=== PATIENT | female | born 1995 | race African-American/Black ===

== ENCOUNTER 2020-04-12 10:18 | Emergency (ER) | payer SELFPAY ==
[2020-04-12 10:30] VITALS: BP 149/96; PULSE 91; RESP 16; TEMP 37.6; O2SAT 100
--- NOTE | 2020-04-12 10:38 | ED.GENADULT ---
HPI - General Adult General Chief complaint: Skin/Abscess/Foreign Body Stated complaint: Boil on right breast Time Seen by Provider: 04/12/20 10:39 Source: patient and RN notes reviewed Mode of arrival: ambulatory Limitations: no limitations History of Present Illness HPI narrative: 25-year-old -[place] female presents with complaints of a boil to RT breast with redness, tenderness, and swelling for the past 4 days. Tender to touch. Symptoms increased over the past 24 hours with drainage. History of skin abscess, last over a year ago per Amanda. No fever or chills. No abdominal pain, nausea, and vomiting. LMP 04/04/20-04/08/30. Remains active. The patient reports she have not been diagnosed with COVID-19. Amanda says she gets tested weekly (works at [employer], last one the week of 04/03/20 NEGATIVE). The patient reports she is waiting for the results of a COVID-19 lab test due to weekly testing. The patient reports she do not have fever, chills, weakness, fatigue, or myalgia. The patient reports she do not have a new or worsening cough or shortness of breath. Denies chest pain. The patient reports she do not have any rhinorrhea, congestion, sore throat, and diarrhea. Tolerating po intake well. Denies recent traveling. Denies concerns for COVID-19 or exposures been home with limited outdoor exposure except for essential household needs, work, and return home. At this time, patient is not suspected of having COVID-19. Some parts of this dictation were generated by voice recognition software and may contain typographical and/or grammatical inaccuracies. Related Data Home Medications Medication Instructions Recorded Confirmed metformin mg 04/12/20 Allergies Allergy/AdvReac Type Severity Reaction Status Date / Time No Known Allergies Allergy Unknown Verified 10/26/17 21:58 Review of Systems Review of Systems: Narrative: CONSTITUTIONAL: Denies fever, chills, sweats. EYES: Denies visual changes, redness, discharge. ENT: Denies rhinorrhea, congestion, sore throat, otalgia. CARDIOVASCULAR: Denies chest pain, palpitations, edema. RESPIRATORY: Denies dyspnea, wheezing, cough. GASTROINTESTINAL: Denies abdominal pain, nausea, vomiting, diarrhea. GENITOURINARY: Denies dysuria, hematuria, abnormal discharge. SKIN: Denies rash or itching. Complains of boil to RT breast with redness, tenderness, swelling, and drainage. MUSCULOSKELETAL: Denies acute back pain, joint pain, or myalgia. NEUROLOGIC: Denies numbness or focal weakness. PSYCHIATRIC: Denies anxiety or depression. All systems reviewed & are unremarkable except as noted in HPI and below. [facility] Past Medical History Medical History (Updated 04/12/20 @ 10:49 by YARA Chopra) Diabetes Surgical History Surgical History (Updated 04/12/20 @ 10:47 by YARA Chopra) No significant past surgical history Family History Family History (Updated 04/12/20 @ 10:48 by YARA Chopra) Father Alive and well Mother Alive and well Social History Social History (Updated 04/12/20 @ 10:48 by YARA Chopra) Smoking status: Never smoker Tobacco type: cigarettes Second hand tobacco smoke exposure: No Alcohol intake: never Substance use: never Living arrangements: with family Occupation/Education: occupation Gender identity (if verbalized by the patient): Female Sexual Orientation (if Verbalized by the Patient): Straight or Heterosexual Comments At time of signature, I have reviewed and agree with nursing past medical, surgical, social, and family history. Please see nursing chart for further information. There is no relevant family history pertinent to the presenting complaint. Exam Narrative: Exam Narrative: GENERAL: This is a well-nourished, well-developed patient, in no apparent distress. Talking in full sentences without deficit and ambulate with steady gait without dyspnea. HEAD: normocephalic, atraumatic.
== END 2020-04-12 10:58 | disposition home or self-care (01) ==
PROVIDERS: Emergency Provider Nurse Practitioner Family
DX: L02.818 Cutaneous abscess of other sites (principal); E11.9 Type 2 diabetes mellitus without complications; Z79.84 Long term (current) use of oral hypoglycemic drugs
CPT/HCPCS: 99213; G0463

== ENCOUNTER 2023-04-01 18:17 | Emergency (ER) | payer SELFPAY ==
[2023-04-01 18:30] VITALS: BP 165/99
[2023-04-01 18:31] VITALS: BP 155/87; PULSE 74; RESP 20; TEMP 36.6; O2SAT 99
--- NOTE | 2023-04-01 18:56 | ED.EAR ---
HPI - Ear Problem General Chief complaint: Ear Stated complaint: ringing in left ear Time Seen by Provider: 04/01/23 19:01 Source: patient and RN notes reviewed Mode of arrival: ambulatory Limitations: no limitations History of Present Illness HPI Narrative: 28-year-old female presents with concern for ringing in the left ear. Reports that started Friday. She denies upper respiratory symptoms, drainage from the ear. Denies pain. She denies taking any medications for her symptoms MD Complaint: ear pain Related Data Allergies Allergy/AdvReac Type Severity Reaction Status Date / Time No Known Allergies Allergy Unknown Verified 04/01/23 18:25 Review of Systems Review of Systems: CONSTITUTIONAL: Denies malaise, chills, sweats, or fever. EYES: Denies visual changes, redness, or discharge. ENT: Denies rhinorrhea, congestion, sinus pain, and sore throat. Reports runny in the left ear CARDIOVASCULAR: Denies chest pain, palpitations, or edema. RESPIRATORY: Denies cough. Denies dyspnea. GASTROINTESTINAL: Denies abdominal pain, nausea, vomiting, diarrhea SKIN: Denies rash or itching. MUSCULOSKELETAL: Denies myalgia. NEUROLOGIC: Denies headache. All systems reviewed & are unremarkable except as noted in HPI and below PMFSH Past Medical History Medical History (Updated 04/01/23 @ 19:00 by Shruti Palmer NP) Diabetes Surgical History Surgical History (Updated 04/12/20 @ 10:47 by YARA Chopra) No significant past surgical history Family History Family History (Updated 04/12/20 @ 10:48 by YARA Chopra) Father Alive and well Mother Alive and well Social History Social History (Updated 04/12/20 @ 10:48 by YARA Chopra) Smoking status: Never smoker Tobacco type: cigarettes Second hand tobacco smoke exposure: No Alcohol intake: never Substance use: never Living arrangements: with family Occupation/Education: occupation Gender identity (if verbalized by the patient): Female Sexual Orientation (if Verbalized by the Patient): Straight or Heterosexual Comments At time of signature, agree with nursing past medical, surgical, social and family history. There is no relevant family history pertinent to the presenting complaint Exam Narrative: GENERAL: Well-appearing, well-nourished, and in no acute distress. HEAD: Normocephalic EYES: PERRLA, conjunctivae clear ENT: Nares clear. Mucous membranes moist. Right tM pearly rabago with dull light reflex left ear erythematous and bulging; no tragal tenderness. NECK: Supple. No lymphadenopathy CHEST: Clear to auscultation, breath sounds equal. No wheezing, rhonchi, rales, or stridor. No respiratory distress, speaks in full sentences. HEART: Regular rate and rhythm. No murmur heard. SKIN: Warm, dry, no rash. NEURO: Alert and oriented x3. PSYCH: Normal mood and affect Course Course Emergency Course: Patient is aware of diagnosis, understands and agrees to treatment plan. Anticipatory guidance given. Patient agrees to follow-up as directed and is aware of reasons to seek care at the emergency department. Portions of this record may have been created with voice recognition software Level of Care: Express Care Visit Vital Signs Vital signs: Vital Signs Blood Pressure 165/99 H 04/01/23 18:30 Temperature 97.8 F 04/01/23 18:31 Pulse Rate 74 04/01/23 18:31 Respiratory Rate 20 04/01/23 18:31 Blood Pressure 155/87 H 04/01/23 18:31 Pulse Oximetry 99 04/01/23 18:31 Reviewed. Medical Decision Making MDM Narrative Medical decision making narrative: Differential diagnosis considered: Wyatt virus, strep pharyngitis, allergic rhinitis, upper respiratory tract infection, sinusitis, rhinosinusitis, nasopharyngitis. viral pharyngitis, otitis media, otitis externa, otitis effusion, cerumen impaction, foreign body. Exam findings show no acute concerns or changes; patient is non-toxic appearing and i
== END 2023-04-01 19:05 | disposition home or self-care (01) ==
PROVIDERS: Emergency Provider Nurse Practitioner; PCP Family Medicine
DX: H66.92 Otitis media, unspecified, left ear (principal); E11.9 Type 2 diabetes mellitus without complications
CPT/HCPCS: 99213; G0463

== ENCOUNTER 2024-09-21 08:20 | Emergency (ER) | payer SELFPAY ==
--- NOTE | 2024-09-21 08:29 | ED.FEMALEGU ---
HPI - Female Genitourinary General Chief complaint: Urogenital-Female Stated complaint: urinary issue Time Seen by Provider: 09/21/24 08:37 Source: patient, RN notes reviewed and old records reviewed Mode of arrival: ambulatory Limitations: no limitations History of Present Illness HPI Narrative: 29-year-old female Presents to [facility] concerns for urinary frequency. reports that she had some blood on her toilet paper last night, nothing today. Patient denies any burning. Last menstrual period was 31 August. Denies any chance of . At 1st patient denied any past medical history. Symptoms started last night Onset (ago): hour(s) (12) Related Data Home Medications ?Medication ?Instructions ?Recorded ?Confirmed ?Last Taken ?Type No Home Medications 09/21/24 09/21/24 Unknown History Allergies Allergy/AdvReac Type Severity Reaction Status Date / Time No Known Allergies Allergy Unknown Verified 09/21/24 08:32 Review of Systems Review of Systems: All systems reviewed & are unremarkable except as noted in HPI and below Constitutional: Constitutional: Reports no additional constitutional complaints ENT: Reports system reviewed and no additional complaints, except as documented Cardiovascular: Cardiovascular: Reports no additional cardiovascular complaints, Denies chest pain and Denies dyspnea Respiratory: Respiratory: Reports no additional respiratory complaints, Denies chest congestion, Denies cough and Denies dyspnea Genitourinary: Genitourinary: Reports as per HPI and Reports dysuria Musculoskeletal: Musculoskeletal: Reports no additional musculoskeletal complaints Integumentary/Breasts: Skin/Breast: Reports system reviewed and no additional complaints, except as docu PMFSH Past Medical History Medical History Diabetes Surgical History Surgical History No significant past surgical history Family History Family History Father Alive and well Mother Alive and well Social History Social History Smoking status: Never smoker Tobacco type: cigarettes Second hand tobacco smoke exposure: No Alcohol intake: never Substance use: never Living arrangements: with family Occupation/Education: occupation Gender identity (if verbalized by the patient): Female Sexual Orientation (if Verbalized by the Patient): Straight or Heterosexual Comments At the time of my signature, I reviewed and agree with the nursing past medical, surgical, social, and family history. There is no relevant family history pertinent to the patient complaint. Exam Const: General: cooperative, healthy appearing, comfortable, no acute distress, well developed, alert and well nourished Nutritional Appearance: well nourished and obese morbidly obese Orientation/consciousness: patient oriented x3 Limitations: no limitations HENMT: Head: normal to inspection Eyes: General: appearance normal, both eyes and all related structures Alignment and Position: alignment normal Neck: Neck: normal visual inspection, full ROM, no lymphadenopathy and no meningeal signs Chest: Chest palpation & inspection: normal inspection of the chest Resp: Effort & Inspection: normal respiratory effort and able to speak in complete sentences Auscultation: clear to auscultation bilaterally, no crackles, no rales, no rhonchi and no wheezes Cardio: Rate: regular rate GI: GI Palp: No abdominal tenderness : General: Yes no CVA tenderness Skin: General skin exam: normal color and no rashes or lesions noted Neuro: General: patient oriented x3, gait normal, moves all extremities and no meningeal signs Cognition (Neuro): normal cognition Speech: normal speech Gait exam (Neuro): Normal gait present Extrem: General: normal to inspection, full ROM, capillary refill normal and normal gait Psych: Appearance: grossly normal and well kempt Mental Status: mental status grossly normal Speech and movement: Normal speech and movement present and Clear speech present Affect: normal affect Attitude: cooperative Course Course Level of Care: Express Care Visit Vital Signs Vital signs: Vital Signs Temperature 98.7 F 09/21/24 08:41 Pulse Rate 86 09/21/24 08:41 Respiratory Rate 16 09/21/24 08:41 Blood Pressure 152/96 H 09/21/24 08:41 Pulse Oximetry 99 09/21/24 08:41 Oxygen Delivery Room Air 09/21/24 08:41 Temperature 98.7 F 09/21/24 08:41 Pulse Rate 86 09/21/24 08:41 Respiratory Rate 16 09/21/24 08:41 Blood Pressure 152/96 H 09/21/24 08:41 Pulse Oximetry 99 09/21/24 08:41 Oxygen Delivery Room Air 09/21/24 08:41 Reviewed MDM - Female Genitourinary MDM Narrative Medical decision making narrative: Patient sitting exam. Nontoxic, vitals stable. Patient is reports only complaint is frequency. Patient's blood sugar is elevated. Patient's blood pressure is elevated. Discussed this with patient, patient reports that she has a history of diabetes and hypertension, does not seek treatment for either. Discussed with patient and that her urinary frequency could be due to the elevated blood sugar. Will send culture for urine if bacteria grows out we will call in an antibiotic. Due to not having any other signs or symptoms concern for uncontrolled diabetes. Discussed the importance of following up with primary, discussed risks of going for hypertension and diabetes Discussed signs and symptoms to proceed to the emergency Discharge instructions reviewed with patient, as well as provided in writing per nursing staff. The instructions also include specific and strict return/GO TO THE ER as well as f/u information. All questions have been answered, and the patient deny any further questions with discharge and discharge plan. Some parts of this dictation were generated by voice recognition software and may contain typographical and/or grammatical inaccuracies. Differential Diagnosis Differential diagnosis: Likely urinary tract infection, cystitis and other (Diabetes) Lab Data Labs: Lab Results 09/21/24 09/21/24 Range/Units 08:40 08:45 POC Capillary Glucose 229 H (65-105) mg/dl POC Urine Color Yellow POC Urine Clarity Clear POC Urine pH 7.0 POC Ur Specif [place] 1.020 POC Urine Protein 2+ (Negative) POC Ur Glucose (UA) 2+ (Negative) POC Urine Ketones Negative (Negative) POC Urine Blood 3+ (Negative) POC Urine Nitrite Negative (Negative) POC Urine Bilirubin Negative (Negative) POC Urine Urobilinogen 0.2 POC U Leukocyte Esteras 1+ (Negative) Reviewed Critical Care Time Critical Care Time Critical Care Time: No Discharge Plan Discharge Clinical Impression: Blood glucose elevated, Urinary frequency, Elevated blood pressure reading Patient Disposition: Home, Self-Care Condition: Stable Instructions: Antibiotic Form, Dysuria (ED), Hypertension (ED), Type 2 Diabetes Management for Adults (ED) Additional Instructions: Today your blood pressure was elevated 152/96. Is recommended you follow-up with primary care provider for further evaluation. Two primary care providers as well as a list of primary care providers for the [facility] has been given to please call today for an appointment. Proper management of both these conditions require a primary care provider for evaluation. These are not manage through an ER or an urgent care. Uncontrolled blood pressure and uncontrolled blood sugars can cause more serious health issues such as heart attacks, strokes, kidney failure as well as more serious health issues Urine was sent for culture if at that time it does come back positive with bacteria we will call you and call in an antibiotic at that time. Your symptoms are most likely due to your elevated blood sugar. For worsening symptoms go directly to the emergency room Patient Language: Sen[place]alese Prescriptions: No Action No Home Medications Follow-up/Referrals: Rosie Miguel DO [Physician] - 3 Days PHYSICIAN,RECYCLING COORDINATOR [Primary Care Provider] - Abdiel Caruso MD [Physician] - Stand Alone Forms: Work/School Release IP Time of Disposition: 09:03
[2024-09-21 08:41] VITALS: BP 152/96; PULSE 86; RESP 16; TEMP 37.1; O2SAT 99
[2024-09-21 08:44] LABS: EDUAAPPEAR Clear; EDUABILI Negative (Negative); EDUABLOOD 3+ (Negative); EDUACOLOR1 Yellow; EDUAGLUCOSE 2+ (Negative); EDUAKETONE Negative (Negative); EDUALEUKO 1+ (Negative); EDUANITRATE Negative (Negative); EDUAPROTEIN 2+ (Negative); EDUAUROBILI 0.2
[2024-09-21 08:48] LABS: Glucose Point of Care 229 mg/dl (65-105)
== END 2024-09-21 09:05 | disposition home or self-care (01) ==
PROVIDERS: Emergency Provider Nurse Practitioner
DX: E11.65 Type 2 diabetes mellitus with hyperglycemia (principal); R35.0 Frequency of micturition; E03.0 Congenital hypothyroidism with diffuse goiter
CPT/HCPCS: 81003; 82948; 87086; 99213; G0463

== ENCOUNTER 2025-01-25 14:21 | Emergency (ER) | payer OTHER, SELFPAY ==
--- NOTE | 2025-01-25 14:48 | ED_ITS ---
HPI - Ear Problem General Chief complaint: Ear Stated complaint: Hear ringing in right ear; hear ringing Time Seen by Provider: 01/25/25 14:53 Source: patient Mode of arrival: ambulatory Limitations: no limitations History of Present Illness HPI Narrative: Amanda is a 29-year-old female patient presenting to the clinic today with complaints of ringing and muffled in her right ear for over 1 week. 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 No fevers, chills, body aches. No URI symptoms. Related Data Home Medications ?Medication ?Instructions ?Recorded ?Confirmed ?Last Taken ?Type No Home Medications 09/21/24 01/25/25 Unknown History Allergies Allergy/AdvReac Type Severity Reaction Status Date / Time No Known Allergies Allergy Unknown Verified 01/25/25 15:00 Review of Systems Review of Systems: Pertinent positives per HPI. Patient denies any fever, chills, rash, headache, visual changes, dizziness, cough, shortness of breath, chest pain, palpitations, nausea, vomiting, diarrhea, constipation, abdominal pain, or any urinary issues. PMFSH Past Medical History Medical History Diabetes Surgical History Surgical History No significant past surgical history Family History Family History Father Alive and well Mother Alive and well Social History Social History Smoking status: Never smoker Tobacco type: cigarettes Second hand tobacco smoke exposure: No Alcohol intake: never Substance use: never Living arrangements: with family Occupation/Education: occupation Gender identity (if verbalized by the patient): Female Sexual Orientation (if Verbalized by the Patient): Straight or Heterosexual Comments At the time of my signature, I reviewed and agree with the nursing past medical, surgical, social, and family history. There is no relevant family history pertinent to the patient complaint. Exam Narrative: General: Well-developed, well nourished, in no apparent distress Head: Normocephalic, atraumatic Eyes: Pupils equally round and reactive to light bilaterally, EOM intact, sclera and conjunctive clear, no discharge, lids normal Ears: Right cerumen impaction, right ear irrigation was performed successfully TMs intact and clear, left ear canal ceruminous, no drainage, grossly hearing normal. Nose: Nares patent, no discharge, no inflammation, no sinus tenderness. Mouth: Oral pharynx without lesions or masses, good dentition, MMM. Neck: Supple, trachea midline, no enlargement of anterior or posterior cervical nodes, no thyroid masses or goiter palpable. Cardio: Regular rate and rhythm, s1 and s2 normal, no murmur appreciated. Resp: Clear to auscultation bilaterally, no rhonchi, rales, wheezing or rubs Course Course Emergency Course: Portions of this record may have been created with voice recognition software. Level of Care: Express Care Visit Vital Signs Vital signs: Vital Signs Temperature 36.6 C 01/25/25 14:58 Pulse Rate 89 01/25/25 14:58 Respiratory Rate 16 01/25/25 14:58 Blood Pressure 155/94 H 01/25/25 14:58 Pulse Oximetry 100 01/25/25 14:58 Oxygen Delivery Room Air 01/25/25 14:58 Temperature 36.6 C 01/25/25 14:58 Pulse Rate 89 01/25/25 14:58 Respiratory Rate 16 01/25/25 14:58 Blood Pressure 155/94 H 01/25/25 14:58 Pulse Oximetry 100 01/25/25 14:58 Oxygen Delivery Room Air 01/25/25 14:58 Vital signs reviewed Procedures Ear Wax Removal Right Ear: Ear Wax Removal Date: 01/25/25 Results: Re-examined: cerumen removed completely TM Examination: TM(s) intact, normal appearance Ear Canal Exam: atraumatic Patient Tolerated Procedure: well and no complications Complications: no problems Technique: ear canal irrigated Additional Comments: Verbal consent obtained for ear irrigation. Risk and benefits explained and patient voiced understanding. Ear irrigation performed using an elephant ear and spray water bottle. Mixture of 1/2 peroxide 1/2 water used to irrigate ear canal. Cerumen impaction cleared and TM visualized without redness. Grossly hearing normal. Patient tolerated procedure well Medical Decision Making MDM Narrative Medical decision making narrative: At the time of visit patient is resting comfortably on the exam table. Patient appears to be nontoxic. Plan: Supportive measures were discussed with the patient and they voiced understanding discharge instructions and agrees to treatment plan. Return precautions reviewed Differential Diagnosis Differential Diagnosis: Otitis media, otitis externa, eustachian tube dysfunction, cerumen impaction, upper respiratory infection, serous otitis, tinnitus, Meniere's disease Vital Signs Vital Signs: Vital Signs Temperature 36.6 C 01/25/25 14:58 Pulse Rate 89 01/25/25 14:58 Respiratory Rate 16 01/25/25 14:58 Blood Pressure 155/94 H 01/25/25 14:58 Pulse Oximetry 100 01/25/25 14:58 Oxygen Delivery Room Air 01/25/25 14:58 Temperature 36.6 C 01/25/25 14:58 Pulse Rate 89 01/25/25 14:58 Respiratory Rate 16 01/25/25 14:58 Blood Pressure 155/94 H 01/25/25 14:58 Pulse Oximetry 100 01/25/25 14:58 Oxygen Delivery Room Air 01/25/25 14:58 Discharge Plan Discharge Clinical Impression: Cerumen impaction Qualifiers: Laterality: right Qualified Code(s): H61.21 - Impacted cerumen, right ear Patient Disposition: Home Condition: Stable Instructions: Antibiotic Form, Tinnitus (ED) Additional Instructions: Ear irrigation was performed successfully in the clinic today. Follow-up with your primary care doctor as needed Patient Language: Setswana Prescriptions: No Action No Home Medications Follow-up/Referrals: UNKNOWN,DOCTOR [Primary Care Provider] - Time of Disposition: 15:07 Quality NIHSS Nursing Documentation ED NIHSS nursing documentation: reviewed/agree
[2025-01-25 14:58] VITALS: BP 155/94; PULSE 89; RESP 16; TEMP 36.6; O2SAT 100
[2025-01-25] MEDS: HYDROGEN PEROXIDE 3% SOLN(*SP) 473 ML BOTTLE 30 ML IRRIGATION (15:08)
== END 2025-01-25 15:20 | disposition home or self-care (01) ==
PROVIDERS: Emergency Provider Nurse Practitioner Family
DX: H61.21 Impacted cerumen, right ear (principal); E11.9 Type 2 diabetes mellitus without complications
CPT/HCPCS: 69209; 99212; G0463